=== PATIENT | female | born 1975 | race Caucasian/White ===

== ENCOUNTER 2017-01-20 09:35 | Inpatient (IN) | payer OTHER ==
[2017-01-20] MEDS ORDERED: PHENERGAN INJ 25 MG ONE ×2 (09:41→11:34)
[2017-01-20] MEDS ORDERED: NS 1000 ML 1,000 ML ONE (09:41)
[2017-01-20] MEDS ORDERED: DILAUDID INJ ONE (09:42)
[2017-01-20 09:52] VITALS: BMI 27.4
[2017-01-20] MEDS ORDERED: NS 1000 ML 1,000 ML IV ONE (09:56)
[2017-01-20] MEDS ORDERED: DILAUDID IVP ONE (09:56)
[2017-01-20] MEDS ORDERED: PHENERGAN INJ 25 MG IV ONE ×2 (09:56→11:33)
[2017-01-20] MEDS ORDERED: DILAUDID INJ IVP PRN ×2 (09:57→14:02)
--- NOTE | 2017-01-20 10:01 | ED.ABDFE ---
HPI - Time seen Time seen: 09:55 - PCP Primary Care Physician: AYANNA - HPI Comment HPI Comment: PATIENT HAVE HISTORY OF 6MM STONE IN RENAL PELVIS. WAS ASYMTOMATIC UNTILL LAST NIGHT. HAVE LOW GRADE FEVER. PAIN WORSE THIS AM. - Complaint Chief Complaint Doctors Comments: RIGHT FLANK PAIN SINCE LAST NIGHT. Chief Complaint:: PT. C/O RIGHT FLANK PAIN. PT. STATES SHE HAS BEEN ASYMPTOMATIC UNTIL LAST NIGHT. SHE SEEN DR. BULLOCK ON THURSDAY AND IS SCHEDULED FOR LITHOTRIPSY ON 02/03/17. PT. HAS A 6MM KIDNEY STONE. - Nurses notes reviewed Nurses Notes Review: Yes - Source History Provided: Patient, Family Member - Mode of arrival Mode of Arrival: Ambulatory - Timing Onset of Chief Complaint: 01/19/17 Came on: Suddenly - Duration Duration: Constant Duration: Hours - Location Location: RLQ (RIGHT FLANKK AND RT LOWER ABDOMEN) - Severity Severity: Moderate - Quality Quality: Sharp - Context Onset: Suddenly, At Rest PMH - PMH Past Medical History: Yes Past Medical History: Migraines Past Surgical History: Yes Surgical History: , Hysterectomy - Family History History of Family Medical Conditions: Yes Family Medical History: Cancer - Social History Does patient currently use any type of tobacco product: No Have you used tobacco products in the last 12 months: No Type of Tobacco Use: None Does any household member use tobacco: No Alcohol Use: None Do you use any recreational Drugs:: No Lives With: Spouse Lives Where: Home - infectious screening In the last 2 months have you had wt loss of >10#?: NO Have you had fever, night sweats or hemotysis?: No Have you traveled outside the country in the last 6 months?: No Isolation: Standard ROS - Review of Systems Constitutional: No Symptoms Reported Eyes: No Symptoms Reported ENTM: No Symptoms Reported Respiratoy: No Symptoms Reported Cardiovascular: No Symptoms Reported Gastrointestinal/Abdominal: Abdominal Pain, Nausea, Vomiting Genitourinary: Other (RIGHT FLANK) Neurological: No Symptoms Reported Musculoskeletal: No Symptoms Reported Integumentary: Dryness Hematologic/Lymphatic: No Symptoms Reported Endocrine: No Symptoms Reported All Other Systems: Reviewed and Negative PE - Vital Signs Vitals: Temperature 98.4 F Pulse Rate 123 Respiratory Rate 22 Blood Pressure [Right Arm] 109/68 Blood Pressure 101/69 O2 Sat by Pulse Oximetry 98 - General Limitations: No Limitations General Appearance: Alert - Head Head Exam: Normal Inspection - Eyes Eye exam: Normal Appearance - ENT ENT Exam: Normal External Ear Exam - Neck Neck Exam: Normal Inspection - Chest Chest Inspection: Symmetric Chest Wall Rise - Respiratory Respiratory Exam: Normal Lung Sounds Bilat Respiratory Exam: Bilateral Clear to Auscultation - Cardiovascular Cardiovascular Exam: Regular Rate, Normal Rhythm, Normal Heart Sounds - Abdominal Exam Abdominal Exam: Normal Bowel Sounds, Soft Abdominal Tenderness: RLQ, Suprapubic, Moderate - Rectal Rectal Exam: Deferred - Back Back Exam: (R) CVA Tenderness - Extremeties Extremities Exam: Normal Inspection - External Exam: Female: Normal External Exam : Speculum Exam (Female): Normal Speculum Exam : Bimanual Exam (female): Normal Bimanual exam - Neurologic Neurological Exam: Alert, Oriented X3 - Psychiatric Psychiatric Exam: Anxious - Skin Skin Exam: Dry MDM - Additional Information Obtained From Additional information provided by: Family - Differential Diagnosis Differential Diagnosis- Considerations may include:: Bowel Obstruction, Gastritus/PUD, Urinary obstruction, Urinary tract infection, Urolithiasis Course - Treatment Treatment: SEE REPORT. PATIENT DISCHARGE HOME BUT PAIN INCREASE AND SHE SPIKE TEMP. SHE RETURN TO ED AND WAS DIRECT ADMITTED TO HOSPITAL FOR IN HOUSE MANAGEMENT. - Consultation Consultation Comments: DISCUSS PATIENT WITH DR. URENA. HE WILL ADMIT PATIENT. - Education/Counseling Education/Counseling: Patient, Family, Education Educated On: Treatment, Diagnosis, Needs for Follow Up ROR - Labs Reviewed Laboratory Results Reviewed?: Yes Result Diagrams: 01/21/17 05:10 01/21/17 05:10 Laboratory: WBC 15.5 X10^3/uL (3.6-10.0) H 01/21/17 05:10 RBC 3.53 X10^6/uL (3.5-5.4) 01/21/17 05:10 Hgb 11.2 g/dL (12.0-16.0) L 01/21/17 05:10 Hct 33.4 % (36.0-47.0) L 01/21/17 05:10 MCV 94.6 fL (80.0-100.0) 01/21/17 05:10 MCH 31.9 pg (27.0-34.0) 01/21/17 05:10 MCHC 33.7 g/dL (33.0-35.0) 01/21/17 05:10 RDW 13.3 % (11.6-16.5) 01/21/17 05:10 Plt Count 182 X10^3/uL (150.0-450.0) 01/21/17 05:10 Plt Count Comment Adequate (ADEQUATE) 01/21/17 05:10 MPV 9.1 fL (7.4-11.0) 01/21/17 05:10 Neut % 93.9 % (42.0-75.0) H 01/21/17 05:10 Lymph % 3.9 % (21.0-51.0) L 01/21/17 05:10 [place] % 2.0 % (0.0-13.0) 01/21/17 05:10 Eos % 0.0 % (0.9-2.9) L 01/21/17 05:10 Baso % 0.2 % (0.2-1.0) 01/21/17 05:10 Neut # 14.6 x10^3/uL (2.2-4.8) H 01/21/17 05:10 Lymph # 0.6 X10^3/uL (1.3-2.9) L 01/21/17 05:10 Becker # 0.3 x10^3/uL (0.3-0.8) 01/21/17 05:10 Eos # 0.0 x10^3/uL (0.0-0.2) 01/21/17 05:10 Baso # 0.0 X10^3/uL (0.0-0.1) 01/21/17 05:10 Absolute Nucleated RBC 0.0 /100WBC 01/21/17 05:10 Total Counted 100 01/21/17 05:10 Neutrophils % (Manual) 84 % (39-76) H 01/21/17 05:10 Band Neutrophils % 7 % (0-10) 01/21/17 05:10 Lymphocytes % (Manual) 7 % (13-43) L 01/21/17 05:10 Monocytes % (Manual) 2 % (4-9) L 01/21/17 05:10 Plt Morphology Comment Normal (NORMAL) 01/21/17 05:10 RBC Morphology Normal (NORMAL) 01/21/17 05:10 Sodium 142 mmol/L (136-145) 01/21/17 05:10 Corrected Sodium 142 mmol/L (136-145) 01/21/17 05:10 Potassium 3.5 mmol/L (3.5-5.1) 01/21/17 05:10 Chloride 110 mmol/L (98-107) H 01/21/17 05:10 Carbon Dioxide 20.3 mmol/L (21-32) L 01/21/17 05:10 BUN 15 mg/dL (7-18) 01/21/17 05:10 Creatinine 1.30 mg/dL (0.55-1.02) H 01/21/17 05:10 Est GFR (MDRD) Af Amer 59 (>60) 01/21/17 05:10 Est GFR (MDRD) Non-Af 48 (>60) L 01/21/17 05:10 Glucose 115 mg/dL (65-99) H 01/21/17 05:10 Calcium 7.5 mg/dL (8.5-10.1) L 01/21/17 05:10 Corrected Calcium 8.6 mg/dL (8.5-10.1) 01/21/17 05:10 Total Bilirubin 0.40 mg/dL (0.2-1.0) 01/21/17 05:10 AST 57 Units/L (15-37) H 01/21/17 05:10 ALT 47 Units/L (12-78) 01/21/17 05:10 Alkaline Phosphatase 53 Units/L (46-116) 01/21/17 05:10 Total Protein 5.6 g/dL (6.4-8.2) L 01/21/17 05:10 Albumin 2.6 g/dL (3.4-5.0) L 01/21/17 05:10 Globulin 3.0 g/dL (2.5-4.5) 01/21/17 05:10 Albumin/Globulin Ratio 0.9 Ratio (1.1-2.1) L 01/21/17 05:10 Specimen Type Clean catch urine 01/20/17 19:33 Urine Color Yellow (YELLOW) 01/20/17 19:33 Urine Appearance Hazy (CLEAR) 01/20/17 19:33 Urine pH 5.0 (5.0 - 8.0) 01/20/17 19:33 Ur Specific [place] 1.010 (1.000-1.030) 01/20/17 19:33 Urine Protein 1+ (NEGATIVE) 01/20/17 19:33 Urine Glucose (UA) Negative (NEGATIVE) 01/20/17 19:33 Urine Ketones Negative (NEGATIVE) 01/20/17 19:33 Urine Occult Blood 4+ (NEGATIVE) 01/20/17 19:33 Urine Nitrite Negative (NEGATIVE) 01/20/17 19:33 Urine Bilirubin Negative (NEGATIVE) 01/20/17 19:33 Urine Urobilinogen Normal (NORMAL) 01/20/17 19:33 Ur Leukocyte Esterase 3+ (NEGATIVE) 01/20/17 19:33 Urine RBC 0-5 /HPF (NEGATIVE) 01/20/17 19:33 Urine WBC 11-25 /HPF (NEGATIVE) 01/20/17 19:33 Ur Squamous Epith Cells Rare /HPF (NEGATIVE) 01/20/17 19:33 Urine Bacteria 4+ /HPF (NEGATIVE) 01/20/17 19:33 Ur Culture Indicated? Yes/culture set up 01/20/17 19:33 - XRAY XRAY Interpreted by: Radiologist XRAY Findings: REPORT DISCUSS WITH PATIENT. - Diagnosis Discharge Problem: Kidney stone Abdominal pain Qualifiers: Abdominal location: right lower quadrant Qualified Code(s): R10.31 - Right lower quadrant pain Fever Qualifiers: Fever type: due to other condition Qualified Code(s): R50.81 - Fever presenting with conditions classified elsewhere - Discharge Plan Disposition: ADMITTED INPATIENT Condition: Good - Follow ups/Referrals - Instructions
[2017-01-20 10:33] LABS: BILIRUBIN,URINE NEGATIVE (NEGATIVE); BLOOD/HEMOGLOBIN,URINE 5+ (NEGATIVE); GLUCOSE, URINE NEGATIVE (NEGATIVE); KETONES,URINE NEGATIVE (NEGATIVE); LEUKOCYTE ESTERASE ,URINE NEGATIVE (NEGATIVE); NITRITES,URINE NEGATIVE (NEGATIVE); PROTEIN,URINE 2+ (NEGATIVE); UROBILINOGEN,URINE NORMAL (NORMAL)
[2017-01-20 10:33] LABS: ALANINE AMINOTRANSFERASE 35 Units/L (12-78); ALBUMIN 3.8 g/dL (3.4-5.0); ALKALINE PHOSPHATASE 69 Units/L (46-116); ASPARTATE AMINO TRANSFERASE 27 Units/L (15-37); BLOOD UREA NITROGEN 14 mg/dL (7-18); CALCIUM 8.3 mg/dL (8.5-10.1); CARBON DIOXIDE 25.8 mmol/L (21-32); CHLORIDE 106 mmol/L (98-107); CREATININE 1.23 mg/dL (0.55-1.02); GLUCOSE 95 mg/dL (65-99); SODIUM 142 mmol/L (136-145); TOTAL PROTEIN 7.1 g/dL (6.4-8.2); eGFR BLACK RACES > 60 (>60); eGFR NON BLACK RACES 52 (>60)
[2017-01-20 10:39] LABS: BASOPHILS % (AUTO) 0.4 % (0.2-1.0); EOSINOPHILS % (AUTO) 0.4 % (0.9-2.9); HEMATOCRIT 38.2 % (36.0-47.0); HEMOGLOBIN 12.9 g/dL (12.0-16.0); LYMPHOCYTES # (AUTO) 0.7 X10^3/uL (1.3-2.9); LYMPHOCYTES % (AUTO) 7.8 % (21.0-51.0); MEAN CORPUSCULAR HEMOGLOBIN 31.8 pg (27.0-34.0); MEAN CORPUSCULAR HGB CONC 33.9 g/dL (33.0-35.0); MEAN CORPUSCULAR VOLUME 93.9 fL (80.0-100.0); MEAN PLATELET VOLUME 8.5 fL (7.4-11.0); MONOCYTES # (AUTO) 0.1 x10^3/uL (0.3-0.8); MONOCYTES % (AUTO) 0.9 % (0.0-13.0); NEUTROPHILS # (AUTO) 8.6 x10^3/uL (2.2-4.8); NEUTROPHILS % (AUTO) 90.5 % (42.0-75.0); PLATELET COUNT 227 X10^3/uL (150.0-450.0); RED BLOOD COUNT 4.07 X10^6/uL (3.5-5.4); RED CELL DISTRIBUTION WIDTH 13.3 % (11.6-16.5); WHITE BLOOD COUNT 9.5 X10^3/uL (3.6-10.0)
--- NOTE | 2017-01-20 10:41 | CT ---
CT abdomen and pelvis without contrast Indication: Right flank pain Comparison: 12/01/2016 Technique: Multiple axial images of the abdomen and pelvis were obtained from the lung bases to the pubic symph ysis without the administration of IV contrast. Coronal and sagittal images were also provided. Radiation dose reduction techniques were performed utilizing adjustment for MA/kVP based on patient body size. Findings: The visualized portions of the lung bases are unremarkable. The bony structures are grossly intact. Given the limitations of lack of IV contrast administration the liver, gallbladder, spleen, pancreas , and adrenal glands are unremarkable in their CT appearance. Stone previously located within the right kidney has migrated to the right UVJ measuring 5 mm on tod ay's examination causing mild right hydroureteronephrosis. Left kidney is without evidence of masses , hydronephrosis or mass. No bowel wall thickening or bowel dilatation is present. The colon and rectum are unremarkable. Th e urinary bladder is grossly unremarkable. The appendix is normal. No pelvic or adnexal mass. There is a suspected cyst within the right adnexa measuring approximately 3 cm on axial image 63. No mesenteric lymphadenopathy or stranding can be observed. No free fluid or free air is seen withi n the abdomen. IMPRESSION: 1. Migration of right renal stone to the UVJ measuring approximate 5 mm causing mild right hydroure teronephrosis. 2. Enlargement of the right adnexa suspected to represent an approximate 3 cm right adnexal cyst. 3. The appendix is normal. Reported By:
[2017-01-20 10:44] LABS: APPEARANCE,URINE HAZY (CLEAR); BACTERIA,URINE TRACE /HPF (NEGATIVE); COLOR,URINE YELLOW (YELLOW); SQUAMOUS EPITHELIAL CELL,UR MANY /HPF (NEGATIVE)
[2017-01-20 11:00] LABS: BAND NEUTROPHILS % 2 % (0-10); PLATELET MORPHOLOGY COMMENT NORMAL (NORMAL)
[2017-01-20] MEDS: NS 1000 ML 1,000 ML IV SCH ×2 (15:15→22:54)
[2017-01-20] MEDS: TORADOL 30 MG VIAL IVP PRN ×2 (15:16→21:08)
[2017-01-20] MEDS: ZOFRAN INJ 4 MG VIAL IVP PRN (15:16)
[2017-01-20 20:02] LABS: BILIRUBIN,URINE NEGATIVE (NEGATIVE); BLOOD/HEMOGLOBIN,URINE 4+ (NEGATIVE); GLUCOSE, URINE NEGATIVE (NEGATIVE); KETONES,URINE NEGATIVE (NEGATIVE); LEUKOCYTE ESTERASE ,URINE 3+ (NEGATIVE); NITRITES,URINE NEGATIVE (NEGATIVE); PROTEIN,URINE 1+ (NEGATIVE); UROBILINOGEN,URINE NORMAL (NORMAL)
[2017-01-20 20:07] LABS: APPEARANCE,URINE HAZY (CLEAR); BACTERIA,URINE 4+ /HPF (NEGATIVE); COLOR,URINE YELLOW (YELLOW); RBC,URINE 0-5 /HPF (NEGATIVE); SQUAMOUS EPITHELIAL CELL,UR RARE /HPF (NEGATIVE)
[2017-01-20] MEDS ORDERED: NEURONTIN CAP 300 MG PO ONE (21:43)
[2017-01-20] MEDS: NEURONTIN TAB 600 MG PO SCH (21:49)
[2017-01-20] MEDS ORDERED: NEURONTIN CAP 300 MG PO SCH (22:00)
[2017-01-21] MEDS: TYLENOL 325 MG TAB PO PRN ×3 (00:38→18:38)
[2017-01-21] MEDS: NS 1000 ML 1,000 ML IV SCH ×3 (05:40→21:36)
[2017-01-21 06:18] LABS: BASOPHILS % (AUTO) 0.2 % (0.2-1.0); HEMATOCRIT 33.4 % (36.0-47.0); HEMOGLOBIN 11.2 g/dL (12.0-16.0); LYMPHOCYTES # (AUTO) 0.6 X10^3/uL (1.3-2.9); LYMPHOCYTES % (AUTO) 3.9 % (21.0-51.0); MEAN CORPUSCULAR HEMOGLOBIN 31.9 pg (27.0-34.0); MEAN CORPUSCULAR HGB CONC 33.7 g/dL (33.0-35.0); MEAN CORPUSCULAR VOLUME 94.6 fL (80.0-100.0); MEAN PLATELET VOLUME 9.1 fL (7.4-11.0); MONOCYTES # (AUTO) 0.3 x10^3/uL (0.3-0.8); NEUTROPHILS # (AUTO) 14.6 x10^3/uL (2.2-4.8); NEUTROPHILS % (AUTO) 93.9 % (42.0-75.0); PLATELET COUNT 182 X10^3/uL (150.0-450.0); RED BLOOD COUNT 3.53 X10^6/uL (3.5-5.4); RED CELL DISTRIBUTION WIDTH 13.3 % (11.6-16.5); WHITE BLOOD COUNT 15.5 X10^3/uL (3.6-10.0)
[2017-01-21 06:25] LABS: ALBUMIN 2.6 g/dL (3.4-5.0); CALCIUM 7.5 mg/dL (8.5-10.1); CARBON DIOXIDE 20.3 mmol/L (21-32); COR CA(FOR HYPOALB) 8.6 mg/dL (8.5-10.1); CREATININE 1.3 mg/dL (0.55-1.02); TOTAL PROTEIN 5.6 g/dL (6.4-8.2)
[2017-01-21] MEDS: TORADOL 30 MG VIAL IVP PRN ×3 (06:25→18:33)
[2017-01-21 06:45] LABS: BAND NEUTROPHILS % 7 % (0-10); PLATELET MORPHOLOGY COMMENT NORMAL (NORMAL)
--- NOTE | 2017-01-21 09:37 | DR.H&P ---
H&P - History & Physical for Day of: H&P Date: 01/20/17 - Chief Complaint Chief Complaint: RIGHT FLANK PAIN - Allergies Allergies/Adverse Reactions: Allergies Allergy/AdvReac Type Severity Reaction Status Date / Time Codeine Allergy Verified 01/20/17 09:37 Morphine Allergy Verified 01/20/17 09:37 Sulfa Antibiotics Allergy Verified 01/20/17 09:37 - History of Present Illness History of Present Illness: THIS IS A 41 YEAR OLD FEMALE, WHO IS A PATIENT OF OURS. SHE PRESENTS TO THE EMERGENCY ROOM WITH COMPLAINTS OF RIGHT FLANK PAIN. PATIENT ALSO REPORTS FEVER OF 103F AT HOME. PATIENT STATES SHE HAS BEEN ASYMPTOMATIC UNTIL LAST NIGHT. PATIENT HAD SEEN DR. BULLOCK ON THURSDAY AND WAS SCHEDULED FOR LITHOTRIPSY ON 02/03/17 FOR A 6MM KIDNEY STONE. SHE RATES RIGHT FLANK PAIN A 10 ON A 1-TO-[address] LABS AND [address] WERE OBTAINED. CBC WNL. CMP WNL EXCEPT: CREAT 1.23, GFR 52, CALCIUM 8.3. CT OF ABD/PELVIS REPORTS MIGRATION OF RIGHT RENAL STONE TO THE UVJ MEASURING APPROXIMATE 5MM CAUSING MILD RIGHT HYROURETERONEPHROSIS; ENLARGEMENT OF THE RIGHT ADNEXA SUSPECTED TO REPRESENT AND APPORXIMATE 3CM RIGHT ADNEXAL CYST; APPENDIX IS NORMAL. URINALYSIS ABNORMALS: PROTEIN 2+, OCCULT BLOOD 5+, RBC 5-10, WBC 0-3, BACTERIA TRACE. PATIENT RECEIVED DILAUDID, PHENERGAN, AND AN IV FLUID BOLUS IN ER. WE WILL ADMIT PATIENT FOR FURTHER EVALUATION AND TREATMENT. WE WILL TREAT PATIENT FOR PYELONEPHRITIS WITH IV ANTIBIOTICS AND IV FLUIDS. WE WILL FOLLOW UP IN AM WITH LABS. - Past Medical History Past Medical History: Migraines, Kidney Stones - Past Surgical History Surgical History: , Hysterectomy - Family History Family Medical History: Cancer - Social History Does patient currently use any type of tobacco product: No Have you used tobacco products in the last 12 months: No Type of Tobacco Use: None Does any household member use tobacco: No Alcohol Use: None Drug Use: None - Medications Home Medications: Gabapentin [NEURONTIN CAP 300 mg *] 600 mg PO HS 01/20/17 [History Confirmed ] Hydrocodone-Acet 5 mg/325 mg [NORCO 5 MG/325 MG *] 1 tab PO Q4-6H PRN 01/20/17 [ History Confirmed 01/20/17] - Review of Systems Constitutional: Fever, Chills, Weakness, Malaise Eyes: No Symptoms Reported. denies: Pain, Vision Change, Conjunctivae Inflammation, Eyelid Inflammation, Redness ENT: No Symptoms Reported. denies: Ear Pain, Ear Discharge, Nose Pain, Nose Discharge, Nose Congestion, Mouth Pain, Mouth Swelling, Throat Pain, Throat Swelling Respiratory: No Symptoms Reported. denies: Cough, Shortness of Breath, Hemoptysis, SOB with Excertion, Pleuritic Pain, Sputum, Wheezing Cardiovascular: No Symptoms Reported. denies: Chest Pain, Palpitations, Orthopnea, Paroxysmal Noc. Dyspnea, Edema, Light Headedness Gastrointestinal: Nausea, Abdominal Pain. denies: Diarrhea, Constipation, Melena, Hematochezia Genitourinary: Dysuria, Frequency Musculoskeletal: Back Pain (Right) Skin: No Symptoms Reported. denies: Rash, Lesions, Jaundice, Bruising, Wound, Ecchymosis Neurological: No Symptoms Reported. denies: Weakness, Numbness, Incoordination , Change in Speech, Confusion, Seizures - Physical Exam Vital Signs: Temperature 99.3 F Pulse Rate [Left Brachial] 101 Respiratory Rate 20 Blood Pressure [Left Arm] 91/53 O2 Sat by Pulse Oximetry 90 Oriented: Normal, Time, Person, Place Eyes: Normal. negative: Blurred Vision, Diplopia, Discharge, Pain, Redness, Photophobia Ear: Normal. negative: Swelling, Ecchymosis, Hemotypanum, Abrasion, Laceration Nose: Normal. negative: Injected, Discharge, Blood Throat: Dry. negative: Tonsillar Hypertrophy, Exudate Respiratory: Clear Throughout Cardiovascular: Normal. negative: Murmur, Edema : Normal. negative: Dysuria, Hematuria, Frequency, Discharge, Bleeding, Auscultation: Bowel Sounds: Decreased. negative: Bruit Palpation: Normal. negative: Spleen Enlarged, Liver Enlarged, Mass Pulsatile Tenderness: RLQ, Suprapubic, Severe. negative: Rebound, Guarding, Rigidity Skin: Decreased Turgur. negative: Diaphoresis, Wound, Bruising, Ecchymosis Musculoskeletal: Back:Lumbar, Tender Psychiatric: Normal Mood Description: Anxious Affect: Anxious Speech Pattern: Clear, Appropriate - Assessment/Plan (1) Acute abdominal pain in right flank Status: Acute Plan: ADMIT PATIENT, START IV FLUIDS, IV ANTIBIOTICS, DILUADID, TORADOL, PHENERGAN, STRAIN URINE, MONITOR FOR FEVER. (2) Pyelonephritis Status: Suspected Plan: ABOVE. (3) Dehydration Status: Acute Plan: ABOVE. (4) Fever Qualifiers: Fever type: due to other condition Encounter type: E Qualified Code(s): R50.81 - Fever presenting with conditions classified elsewhere Status: Acute Plan: CONTINUE TO MONITOR, TYLENOL NEEDED. (5) Renal calculus, right Status: Acute Plan: START IV FLUIDS, STRAIN URINE. (6) Chronic migraine Status: Chronic Plan: CONTINUE NEURONTIN, MONITOR.
--- NOTE | 2017-01-21 10:03 | PCM.PROG ---
Progress Note - Progress Note for Day of Date: 01/21/17 - Subjective Subjective: PATIENT CONTINUES WITH SEVERE RIGHT FLANK ABDOMINAL PAIN. SHE IS UNABLE TO LIE STILL DUE TO PAIN THIS MORNING. SHE REPORTS SHE PASSED SMALL STONE-LIKE MATERIAL THAT WAS SENT TO LAB FOR ANALYSIS. WE ARE WAITING ON RESULTS. PATIENT HAD A TEMPERATURE OF 103F THROUGH THE NIGHT AND WHITE COUNT THIS MORNING IS 15.5. WE ARE CONTINUING TREATMENT FOR PYELONEPHRITIS WITH IV ROCEPHIN AND IV FLUIDS. PATIENT IS EXTREMELY TENDER TO RIGHT LOWER ABDOMEN UPON PALPATION. CBC WNL EXCEPT: WBC 15.5, H/H 11.2/33.4. CMP WNL EXCEPT: CHL 110, CARBON DIOXIDE 20.3, CREAT 1.30, GFR 48, GLUCOSE 115, CALCIUM 7.5, AST 57, TOT PROTEIN 5.6, ALBUMIN 2.6. WE WILL CHANGE IV ANTIBIOTICS TO FORTAZ AND LEVAQUIN AND OBTAIN A CT OF ABD/PELVIS WITHOUT CONTRAST IN AM FOR FOLLOW UP. - Past Medical Family Social History Past Med/Fam/Surg Hx: No changes since H&P Allergies: Allergies Codeine Allergy (Verified 01/20/17 09:37) Morphine Allergy (Verified 01/20/17 09:37) Sulfa Antibiotics Allergy (Verified 01/20/17 09:37) - Review of Systems ROS: No change since H&P - Vital Signs and I&O's Vital Signs: Temperature 100.4 F Pulse Rate [Left Brachial] 106 Respiratory Rate 18 Blood Pressure [Left Arm] 90/53 O2 Sat by Pulse Oximetry 93 Intake and Output: Intake & Output 01/18/17 01/19/17 01/20/17 01/21/17 11:59 11:59 11:59 11:59 Intake Total 1650 Output Total 1150 Balance 500 - Physical Exam Oriented: Normal, Time, Person, Place Eyes: Normal. negative: Blurred Vision, Diplopia, Discharge, Pain, Redness, Photophobia Ear: Normal. negative: Swelling, Ecchymosis, Hemotypanum, Abrasion, Laceration Nose: Normal. negative: Injected, Discharge, Blood Throat: Dry. negative: Tonsillar Hypertrophy, Exudate Respiratory: Normal Cardiovascular: Normal. negative: Murmur, Edema : Normal. negative: Dysuria, Hematuria, Frequency, Discharge, Bleeding, Auscultation: Bowel Sounds: Decreased. negative: Bruit Palpation: Normal. negative: Spleen Enlarged, Liver Enlarged, Mass Pulsatile Tenderness: RLQ, Suprapubic, Severe. negative: Rebound, Guarding, Rigidity Skin: Decreased Turgur. negative: Diaphoresis, Wound, Bruising, Ecchymosis Musculoskeletal: Back:Lumbar, Tender Psychiatric: Normal Mood Description: Anxious Affect: Anxious Speech Pattern: Clear, Appropriate - Laboratory and Diagnostics Result Diagrams: 01/21/17 05:10 01/21/17 05:10 Labs: Laboratory WBC 15.5 X10^3/uL (3.6-10.0) H 01/21/17 05:10 RBC 3.53 X10^6/uL (3.5-5.4) 01/21/17 05:10 Hgb 11.2 g/dL (12.0-16.0) L 01/21/17 05:10 Hct 33.4 % (36.0-47.0) L 01/21/17 05:10 MCV 94.6 fL (80.0-100.0) 01/21/17 05:10 MCH 31.9 pg (27.0-34.0) 01/21/17 05:10 MCHC 33.7 g/dL (33.0-35.0) 01/21/17 05:10 RDW 13.3 % (11.6-16.5) 01/21/17 05:10 Plt Count 182 X10^3/uL (150.0-450.0) 01/21/17 05:10 Plt Count Comment Adequate (ADEQUATE) 01/21/17 05:10 MPV 9.1 fL (7.4-11.0) 01/21/17 05:10 Neut % 93.9 % (42.0-75.0) H 01/21/17 05:10 Lymph % 3.9 % (21.0-51.0) L 01/21/17 05:10 [place] % 2.0 % (0.0-13.0) 01/21/17 05:10 Eos % 0.0 % (0.9-2.9) L 01/21/17 05:10 Baso % 0.2 % (0.2-1.0) 01/21/17 05:10 Neut # 14.6 x10^3/uL (2.2-4.8) H 01/21/17 05:10 Lymph # 0.6 X10^3/uL (1.3-2.9) L 01/21/17 05:10 [place] # 0.3 x10^3/uL (0.3-0.8) 01/21/17 05:10 Eos # 0.0 x10^3/uL (0.0-0.2) 01/21/17 05:10 Baso # 0.0 X10^3/uL (0.0-0.1) 01/21/17 05:10 Absolute Nucleated RBC 0.0 /100WBC 01/21/17 05:10 Total Counted 100 01/21/17 05:10 Neutrophils % (Manual) 84 % (39-76) H 01/21/17 05:10 Band Neutrophils % 7 % (0-10) 01/21/17 05:10 Lymphocytes % (Manual) 7 % (13-43) L 01/21/17 05:10 Monocytes % (Manual) 2 % (4-9) L 01/21/17 05:10 Plt Morphology Comment Normal (NORMAL) 01/21/17 05:10 RBC Morphology Normal (NORMAL) 01/21/17 05:10 Sodium 142 mmol/L (136-145) 01/21/17 05:10 Corrected Sodium 142 mmol/L (136-145) 01/21/17 05:10 Potassium 3.5 mmol/L (3.5-5.1) 01/21/17 05:10 Chloride 110 mmol/L (98-107) H 01/21/17 05:10 Carbon Dioxide 20.3 mmol/L (21-32) L 01/21/17 05:10 BUN 15 mg/dL (7-18) 01/21/17 05:10 Creatinine 1.30 mg/dL (0.55-1.02) H 01/21/17 05:10 Est GFR (MDRD) Af Amer 59 (>60) 01/21/17 05:10 Est GFR (MDRD) Non-Af 48 (>60) L 01/21/17 05:10 Glucose 115 mg/dL (65-99) H 01/21/17 05:10 Calcium 7.5 mg/dL (8.5-10.1) L 01/21/17 05:10 Corrected Calcium 8.6 mg/dL (8.5-10.1) 01/21/17 05:10 Total Bilirubin 0.40 mg/dL (0.2-1.0) 01/21/17 05:10 AST 57 Units/L (15-37) H 01/21/17 05:10 ALT 47 Units/L (12-78) 01/21/17 05:10 Alkaline Phosphatase 53 Units/L (46-116) 01/21/17 05:10 Total Protein 5.6 g/dL (6.4-8.2) L 01/21/17 05:10 Albumin 2.6 g/dL (3.4-5.0) L 01/21/17 05:10 Globulin 3.0 g/dL (2.5-4.5) 01/21/17 05:10 Albumin/Globulin Ratio 0.9 Ratio (1.1-2.1) L 01/21/17 05:10 Specimen Type Clean catch urine 01/20/17 19:33 Urine Color Yellow (YELLOW) 01/20/17 19:33 Urine Appearance Hazy (CLEAR) 01/20/17 19:33 Urine pH 5.0 (5.0 - 8.0) 01/20/17 19:33 Ur Specific [place] 1.010 (1.000-1.030) 01/20/17 19:33 Urine Protein 1+ (NEGATIVE) 01/20/17 19:33 Urine Glucose (UA) Negative (NEGATIVE) 01/20/17 19:33 Urine Ketones Negative (NEGATIVE) 01/20/17 19:33 Urine Occult Blood 4+ (NEGATIVE) 01/20/17 19:33 Urine Nitrite Negative (NEGATIVE) 01/20/17 19:33 Urine Bilirubin Negative (NEGATIVE) 01/20/17 19:33 Urine Urobilinogen Normal (NORMAL) 01/20/17 19:33 Ur Leukocyte Esterase 3+ (NEGATIVE) 01/20/17 19:33 Urine RBC 0-5 /HPF (NEGATIVE) 01/20/17 19:33 Urine WBC 11-25 /HPF (NEGATIVE) 01/20/17 19:33 Ur Squamous Epith Cells Rare /HPF (NEGATIVE) 01/20/17 19:33 Urine Bacteria 4+ /HPF (NEGATIVE) 01/20/17 19:33 Ur Culture Indicated? Yes/culture set up 01/20/17 19:33 - Plan (1) Acute abdominal pain in right flank Status: Acute Plan: START LEVAQUIN, FORTAZ, CONTINUE IV FLUIDS, DILUADID, TORADOL, PHENERGAN, STRAIN URINE, MONITOR FOR FEVER. (2) Pyelonephritis Status: Suspected Plan: START LEVAQUIN, FORTAZ, CONTINUE IV FLUIDS, DILUADID, TORADOL, PHENERGAN, STRAIN URINE, MONITOR FOR FEVER, LABS IN AM. (3) Dehydration Status: Chronic Plan: ABOVE. (4) Fever Status: Acute Qualifiers: Fever type: due to other condition Encounter type: E Qualified Code(s): R50.81 - Fever presenting with conditions classified elsewhere Plan: CONTINUE TO MONITOR, TYLENOL NEEDED. (5) Renal calculus, right Status: Acute Plan: START IV FLUIDS, STRAIN URINE. (6) Hypoalbuminemia Status: Acute Plan: CONTINUE TO MONITOR LABS. (7) Chronic migraine Status: Chronic Plan: CONTINUE NEURONTIN, MONITOR.
[2017-01-21] MEDS: LEVAQUIN PREMIX IV 750 MG 750 MG/150 ML BAG IV SCH (10:27)
[2017-01-21] MEDS: ZOFRAN INJ 4 MG VIAL IVP PRN (11:52)
[2017-01-21] MEDS: FORTAZ or TAZICEF INJ 2 GM in NS 50 ML IV + SPIKE MINIBAG* 50 ML IV SCH ×2 (14:05→21:42)
[2017-01-21] MEDS: PHENERGAN INJ 25 MG IV PRN ×2 (15:10→21:28)
[2017-01-21] MEDS: AMBIEN PO PRN (21:42)
[2017-01-21] MEDS: NEURONTIN TAB 600 MG PO SCH (21:42)
[2017-01-22] MEDS: TORADOL 30 MG VIAL IVP PRN ×4 (01:46→22:03)
[2017-01-22] MEDS: FORTAZ or TAZICEF INJ 2 GM in NS 50 ML IV + SPIKE MINIBAG* 50 ML IV SCH ×3 (05:17→22:04)
[2017-01-22] MEDS: NS 1000 ML 1,000 ML IV SCH ×3 (05:17→22:04)
[2017-01-22] MEDS: PHENERGAN INJ 25 MG IV PRN ×2 (07:47→13:09)
[2017-01-22 08:31] LABS: BASOPHILS % (AUTO) 0.4 % (0.2-1.0); EOSINOPHILS # (AUTO) 0.1 x10^3/uL (0.0-0.2); EOSINOPHILS % (AUTO) 1.1 % (0.9-2.9); HEMATOCRIT 31.8 % (36.0-47.0); HEMOGLOBIN 10.8 g/dL (12.0-16.0); LYMPHOCYTES # (AUTO) 0.5 X10^3/uL (1.3-2.9); LYMPHOCYTES % (AUTO) 4.9 % (21.0-51.0); MEAN CORPUSCULAR HEMOGLOBIN 31.8 pg (27.0-34.0); MEAN CORPUSCULAR HGB CONC 33.8 g/dL (33.0-35.0); MEAN CORPUSCULAR VOLUME 94.1 fL (80.0-100.0); MEAN PLATELET VOLUME 9.1 fL (7.4-11.0); MONOCYTES # (AUTO) 0.3 x10^3/uL (0.3-0.8); NEUTROPHILS # (AUTO) 8.8 x10^3/uL (2.2-4.8); NEUTROPHILS % (AUTO) 90.6 % (42.0-75.0); PLATELET COUNT 138 X10^3/uL (150.0-450.0); RED BLOOD COUNT 3.39 X10^6/uL (3.5-5.4); RED CELL DISTRIBUTION WIDTH 13.5 % (11.6-16.5); WHITE BLOOD COUNT 9.7 X10^3/uL (3.6-10.0)
[2017-01-22 08:42] LABS: ALANINE AMINOTRANSFERASE 76 Units/L (12-78); ALBUMIN 2.2 g/dL (3.4-5.0); ALKALINE PHOSPHATASE 79 Units/L (46-116); ASPARTATE AMINO TRANSFERASE 51 Units/L (15-37); BLOOD UREA NITROGEN 13 mg/dL (7-18); CALCIUM 7.3 mg/dL (8.5-10.1); CHLORIDE 112 mmol/L (98-107); COR CA(FOR HYPOALB) 8.7 mg/dL (8.5-10.1); GLUCOSE 110 mg/dL (65-99); SODIUM 143 mmol/L (136-145); TOTAL PROTEIN 5.5 g/dL (6.4-8.2); eGFR BLACK RACES > 60 (>60); eGFR NON BLACK RACES 53 (>60)
[2017-01-22] MEDS: LEVAQUIN PREMIX IV 750 MG 750 MG/150 ML BAG IV SCH (08:56)
[2017-01-22 09:12] LABS: BAND NEUTROPHILS % 2 % (0-10)
[2017-01-22 10:36] LABS: PLATELET MORPHOLOGY COMMENT NORMAL (NORMAL)
--- NOTE | 2017-01-22 13:18 | CT ---
CT abdomen and pelvis without contrast Indication: Abdominal pain, fever, history of renal stones Comparison: 01/20/2017 Technique: CT images of the abdomen and pelvis were obtained without contrast. Automatic exposure co ntrol was utilized. Findings: Small right pleural effusion with concomitant basilar atelectasis has developed. There is minimal basilar left lower lobe atelectasis. No acute skeletal abnormality is seen. Within noncontra st limitations, the liver, gallbladder, spleen, stomach, duodenum, pancreas, and adrenals appear nor mal. There has been passage of the previously described right UVJ stone, which is not identified within t he ureter or urinary bladder. Right-sided hydronephrosis has resolved. There is mild residual perine phric and periureteral fat stranding. No nephrolithiasis is identified. No bowel thickening or dilatation of the lower GI tract identified. Mild right adnexal prominence is similar to prior. No significant free fluid or adenopathy identified. Impression: 1. Interval passage of the right ureteral stone, with resolved hydronephrosis. 2. Small right pleural effusion Reported By:
--- NOTE | 2017-01-22 13:48 | PCM.PROG ---
Progress Note - Progress Note for Day of Date: 01/22/17 - Subjective Subjective: PATIENT CONTINUES WITH SEVERE RIGHT FLANK ABDOMINAL PAIN THIS MORNING. SHE REPORTS PAIN IS SLIGHTLY IMPROVED WITH IV TORADOL. PATIENT HAS A TEMPERATURE OF 100.3F THIS MORNING. FINAL URINE CULTURE REPORTS ENTEROBACTER AEROGENES, WHICH IS SENSITIVE TO LEVAQUIN. TWO PRELIMINARY BLOOD CULTURES REPORT GRAM NEGATIVE RODS. PATIENT CONTINUES WITH SEVERE TENDERNESS TO RIGHT LOWER ABDOMEN UPON PALPATION. WHITE COUNT IS NORMAL THIS MORNING. CBC WNL EXCEPT: H/H 10.8/31.8, PLT COUNT 138. CMP WNL EXCEPT: CHL 112, CREAT 1.20, GFR 53, GLUCOSE 110, CALCIUM 7.3, AST 51, TOT PROTEIN 5.5, ALBUMIN 2.2. WE WILL CONTINUE FORTAZ AND LEVAQUIN, IV FLUIDS, AND CONTINUE TO MONITOR. WE WILL FOLLOW UP IN AM WITH LABS. - Past Medical Family Social History Past Med/Fam/Surg Hx: No changes since H&P Allergies: Allergies Codeine Allergy (Verified 01/20/17 09:37) Morphine Allergy (Verified 01/20/17 09:37) Sulfa Antibiotics Allergy (Verified 01/20/17 09:37) - Review of Systems ROS: No change since H&P - Vital Signs and I&O's Vital Signs: Temperature 98.4 F Pulse Rate [Left Brachial] 85 Respiratory Rate 18 Blood Pressure [Left Arm] 97/55 O2 Sat by Pulse Oximetry 94 Intake and Output: Intake & Output 01/20/17 01/21/17 01/22/17 01/23/17 11:59 11:59 11:59 11:59 Intake Total 1650 4710 Output Total 1150 2300 Balance 500 2410 - Physical Exam Oriented: Normal, Time, Person, Place Eyes: Normal. negative: Blurred Vision, Diplopia, Discharge, Pain, Redness, Photophobia Ear: Normal. negative: Swelling, Ecchymosis, Hemotypanum, Abrasion, Laceration Nose: Normal. negative: Injected, Discharge, Blood Throat: Dry. negative: Tonsillar Hypertrophy, Exudate Respiratory: Normal Cardiovascular: Normal. negative: Murmur, Edema : Normal. negative: Dysuria, Hematuria, Frequency, Discharge, Bleeding, Auscultation: Bowel Sounds: Decreased. negative: Bruit Palpation: Normal. negative: Spleen Enlarged, Liver Enlarged Tenderness: RLQ, Suprapubic, Severe. negative: Rebound, Guarding, Rigidity Skin: Decreased Turgur. negative: Diaphoresis, Wound, Bruising, Ecchymosis Musculoskeletal: Back:Lumbar, Tender Psychiatric: Normal Mood Description: Calm Affect: Normal Speech Pattern: Clear, Appropriate - Laboratory and Diagnostics Result Diagrams: 01/22/17 07:51 01/22/17 07:51 Labs: 01/20/17 16:05 Blood Blood Culture - Preliminary 01/20/17 16:00 Blood Blood Culture - Preliminary 01/20/17 19:33 Urine,Clean Catch Urine Culture - Final Enterobacter Aerogenes Laboratory WBC 9.7 X10^3/uL (3.6-10.0) 01/22/17 07:51 RBC 3.39 X10^6/uL (3.5-5.4) L 01/22/17 07:51 Hgb 10.8 g/dL (12.0-16.0) L 01/22/17 07:51 Hct 31.8 % (36.0-47.0) L 01/22/17 07:51 MCV 94.1 fL (80.0-100.0) 01/22/17 07:51 MCH 31.8 pg (27.0-34.0) 01/22/17 07:51 MCHC 33.8 g/dL (33.0-35.0) 01/22/17 07:51 RDW 13.5 % (11.6-16.5) 01/22/17 07:51 Plt Count 138 X10^3/uL (150.0-450.0) L 01/22/17 07:51 Plt Count Comment Adequate (ADEQUATE) 01/22/17 07:51 MPV 9.1 fL (7.4-11.0) 01/22/17 07:51 Neut % 90.6 % (42.0-75.0) H 01/22/17 07:51 Lymph % 4.9 % (21.0-51.0) L 01/22/17 07:51 [place] % 3.0 % (0.0-13.0) 01/22/17 07:51 Eos % 1.1 % (0.9-2.9) 01/22/17 07:51 Baso % 0.4 % (0.2-1.0) 01/22/17 07:51 Neut # 8.8 x10^3/uL (2.2-4.8) H 01/22/17 07:51 Lymph # 0.5 X10^3/uL (1.3-2.9) L 01/22/17 07:51 [place] # 0.3 x10^3/uL (0.3-0.8) 01/22/17 07:51 Eos # 0.1 x10^3/uL (0.0-0.2) 01/22/17 07:51 Baso # 0.0 X10^3/uL (0.0-0.1) 01/22/17 07:51 Absolute Nucleated RBC 0.0 /100WBC 01/22/17 07:51 Total Counted 100 01/22/17 07:51 Neutrophils % (Manual) 84 % (39-76) H 01/22/17 07:51 Band Neutrophils % 2 % (0-10) 01/22/17 07:51 Lymphocytes % (Manual) 8 % (13-43) L 01/22/17 07:51 Monocytes % (Manual) 4 % (4-9) 01/22/17 07:51 Eosinophils % (Manual) 2 % (0-6) 01/22/17 07:51 Plt Morphology Comment Normal (NORMAL) 01/22/17 07:51 RBC Morphology Normal (NORMAL) 01/22/17 07:51 Dimorphic RBCs N 01/22/17 07:51 Sodium 143 mmol/L (136-145) 01/22/17 07:51 Corrected Sodium TNP 01/22/17 07:51 Potassium 3.7 mmol/L (3.5-5.1) 01/22/17 07:51 Chloride 112 mmol/L (98-107) H 01/22/17 07:51 Carbon Dioxide 21.0 mmol/L (21-32) 01/22/17 07:51 BUN 13 mg/dL (7-18) 01/22/17 07:51 Creatinine 1.20 mg/dL (0.55-1.02) H 01/22/17 07:51 Est GFR (MDRD) Af Amer > 60 (>60) 01/22/17 07:51 Est GFR (MDRD) Non-Af 53 (>60) L 01/22/17 07:51 Glucose 110 mg/dL (65-99) H 01/22/17 07:51 Calcium 7.3 mg/dL (8.5-10.1) L 01/22/17 07:51 Corrected Calcium 8.7 mg/dL (8.5-10.1) 01/22/17 07:51 Total Bilirubin 0.60 mg/dL (0.2-1.0) 01/22/17 07:51 AST 51 Units/L (15-37) H 01/22/17 07:51 ALT 76 Units/L (12-78) 01/22/17 07:51 Alkaline Phosphatase 79 Units/L (46-116) 01/22/17 07:51 Total Protein 5.5 g/dL (6.4-8.2) L 01/22/17 07:51 Albumin 2.2 g/dL (3.4-5.0) L 01/22/17 07:51 Globulin 3.3 g/dL (2.5-4.5) 01/22/17 07:51 Albumin/Globulin Ratio 0.7 Ratio (1.1-2.1) L 01/22/17 07:51 Specimen Type Clean catch urine 01/20/17 19:33 Urine Color Yellow (YELLOW) 01/20/17 19:33 Urine Appearance Hazy (CLEAR) 01/20/17 19:33 Urine pH 5.0 (5.0 - 8.0) 01/20/17 19:33 Ur Specific [place] 1.010 (1.000-1.030) 01/20/17 19:33 Urine Protein 1+ (NEGATIVE) 01/20/17 19:33 Urine Glucose (UA) Negative (NEGATIVE) 01/20/17 19:33 Urine Ketones Negative (NEGATIVE) 01/20/17 19:33 Urine Occult Blood 4+ (NEGATIVE) 01/20/17 19:33 Urine Nitrite Negative (NEGATIVE) 01/20/17 19:33 Urine Bilirubin Negative (NEGATIVE) 01/20/17 19:33 Urine Urobilinogen Normal (NORMAL) 01/20/17 19:33 Ur Leukocyte Esterase 3+ (NEGATIVE) 01/20/17 19:33 Urine RBC 0-5 /HPF (NEGATIVE) 01/20/17 19:33 Urine WBC 11-25 /HPF (NEGATIVE) 01/20/17 19:33 Ur Squamous Epith Cells Rare /HPF (NEGATIVE) 01/20/17 19:33 Urine Bacteria 4+ /HPF (NEGATIVE) 01/20/17 19:33 Ur Culture Indicated? Yes/culture set up 01/20/17 19:33 - Plan (1) Sepsis Status: Acute Qualifiers: Sepsis type: sepsis due to unspecified organism Qualified Code(s): A41.9 - Sepsis, unspecified organism Plan: AWAIT FINAL BLOOD CULTURES, CONTINUE LEVAQUIN, FORTAZ, CONTINUE IV FLUIDS , MONITOR VITAL SIGNS, LABS IN AM. (2) Pyelonephritis Status: Acute Plan: CONTINUE LEVAQUIN, FORTAZ, CONTINUE IV FLUIDS, DILUADID, TORADOL, PHENERGAN, STRAIN URINE, MONITOR FOR FEVER, LABS IN AM. (3) Acute abdominal pain in right flank Status: Acute Plan: CONTINUE LEVAQUIN, FORTAZ, CONTINUE IV FLUIDS, DILUADID, TORADOL, PHENERGAN, STRAIN URINE, MONITOR FOR FEVER. (4) Dehydration Status: Acute Plan: ABOVE. (5) Fever Status: Acute Qualifiers: Fever type: due to other condition Encounter type: E Qualified Code(s): R50.81 - Fever presenting with conditions classified elsewhere Plan: CONTINUE TO MONITOR, TYLENOL NEEDED. (6) Renal calculus, right Status: Acute Plan: START IV FLUIDS, STRAIN URINE. (7) Hypoalbuminemia Status: Acute Plan: CONTINUE TO MONITOR LABS. (8) Chronic migraine Status: Chronic Plan: CONTINUE NEURONTIN, MONITOR.
[2017-01-22] MEDS: ALBUMIN HUMAN 25%- 100ML 100 ML IV SCH (14:05)
[2017-01-22] MEDS ORDERED: DECADRON INJ PRESERVATIVE-FREE ONE (16:59)
[2017-01-22] MEDS ORDERED: ZOFRAN INJ 4 MG VIAL ONE (16:59)
[2017-01-22] MEDS ORDERED: NS 50 ML IV 50 ML IV ONE (16:59)
[2017-01-22] MEDS ORDERED: ATIVAN INJ 2 MG VIAL ONE (17:02)
[2017-01-22] MEDS: ZOFRAN INJ 4 MG VIAL 16 MG, ATIVAN INJ 2 MG VIAL 1 MG, DECADRON INJ 10 MG in NS 50 ML I... IV PRN (17:11)
[2017-01-22] MEDS: FLONASE NASAL SPRAY ENOSTRIL SCH (17:24)
[2017-01-22] MEDS: NEURONTIN TAB 600 MG PO SCH (22:03)
[2017-01-22] MEDS: AMBIEN PO PRN (22:03)
[2017-01-23] MEDS ORDERED: DECADRON INJ PRESERVATIVE-FREE ONE ×3 (00:57→20:50)
[2017-01-23] MEDS ORDERED: ATIVAN INJ 2 MG VIAL ONE ×3 (00:58→20:51)
[2017-01-23] MEDS ORDERED: ZOFRAN INJ 4 MG VIAL ONE ×3 (00:58→20:50)
[2017-01-23] MEDS ORDERED: NS 50 ML IV 50 ML IV ONE ×3 (00:59→20:50)
[2017-01-23] MEDS: ZOFRAN INJ 4 MG VIAL 16 MG, ATIVAN INJ 2 MG VIAL 1 MG, DECADRON INJ 10 MG in NS 50 ML I... IV PRN ×3 (01:11→20:55)
[2017-01-23] MEDS: FORTAZ or TAZICEF INJ 2 GM in NS 50 ML IV + SPIKE MINIBAG* 50 ML IV SCH ×3 (05:16→21:22)
[2017-01-23] MEDS: NS 1000 ML 1,000 ML IV SCH ×2 (05:16→14:43)
[2017-01-23 05:43] LABS: ALANINE AMINOTRANSFERASE 69 Units/L (12-78); ALBUMIN 2.5 g/dL (3.4-5.0); ALKALINE PHOSPHATASE 94 Units/L (46-116); ASPARTATE AMINO TRANSFERASE 46 Units/L (15-37); BLOOD UREA NITROGEN 12 mg/dL (7-18); CALCIUM 7.6 mg/dL (8.5-10.1); CARBON DIOXIDE 20.9 mmol/L (21-32); CHLORIDE 113 mmol/L (98-107); COR CA(FOR HYPOALB) 8.8 mg/dL (8.5-10.1); COR NA(FOR HYPERGLY) 147 mmol/L (136-145); CREATININE 0.97 mg/dL (0.55-1.02); GLUCOSE 137 mg/dL (65-99); SODIUM 146 mmol/L (136-145); TOTAL PROTEIN 5.9 g/dL (6.4-8.2); eGFR BLACK RACES > 60 (>60); eGFR NON BLACK RACES > 60 (>60)
[2017-01-23 06:02] LABS: BASOPHILS % (AUTO) 0.1 % (0.2-1.0); EOSINOPHILS % (AUTO) 0.2 % (0.9-2.9); HEMATOCRIT 31.2 % (36.0-47.0); HEMOGLOBIN 10.5 g/dL (12.0-16.0); LYMPHOCYTES # (AUTO) 0.5 X10^3/uL (1.3-2.9); LYMPHOCYTES % (AUTO) 11.4 % (21.0-51.0); MEAN CORPUSCULAR HEMOGLOBIN 31.7 pg (27.0-34.0); MEAN CORPUSCULAR HGB CONC 33.7 g/dL (33.0-35.0); MEAN CORPUSCULAR VOLUME 94.2 fL (80.0-100.0); MEAN PLATELET VOLUME 10.1 fL (7.4-11.0); MONOCYTES # (AUTO) 0.2 x10^3/uL (0.3-0.8); MONOCYTES % (AUTO) 3.7 % (0.0-13.0); NEUTROPHILS % (AUTO) 84.6 % (42.0-75.0); PLATELET COUNT 132 X10^3/uL (150.0-450.0); RED BLOOD COUNT 3.31 X10^6/uL (3.5-5.4); RED CELL DISTRIBUTION WIDTH 13.8 % (11.6-16.5); WHITE BLOOD COUNT 4.8 X10^3/uL (3.6-10.0)
[2017-01-23] MEDS: ALBUMIN HUMAN 25%- 100ML 100 ML IV SCH (09:46)
[2017-01-23] MEDS: FLONASE NASAL SPRAY ENOSTRIL SCH (09:47)
[2017-01-23] MEDS: LEVAQUIN PREMIX IV 750 MG 750 MG/150 ML BAG IV SCH (09:47)
--- NOTE | 2017-01-23 12:38 | PCM.PROG ---
Progress Note - Progress Note for Day of Date: 01/23/17 - Subjective Subjective: PATIENT REPORTS FLANK AND ABDOMINAL PAIN ARE SLIGHTLY IMPROVED. PATIENT HAD INTRACTABLE VOMITING YESTERDAY WITH NO IMPROVEMENTS WITH IV PHENERGAN OR IV ZOFRAN. ZOFRAN COCKTAIL WAS ADMINISTERED AND PATIENT'S VOMITING IMPROVED. PATEINT CONTINUES WITH FEVER OF 102.4F YESTERDAY. FOUR OUT OF FOUR BLOOD CULTURES ARE POSITIVE FOR ENTEROBACTER AEROGENES. ORGANISM IS SENSITIVE TO FORTAZ AND LEVAQUIN. URINE CULTURE ALSO REPORTS ENTEROBACTER AEROGENES, WHICH IS ALSO SENSITIVE TO FORTAZ AND LEVAQUIN. PATIENT CONTINUES WITH MODERATE TENDERNESS TO RIGHT LOWER ABDOMEN UPON PALPATION. CBC WNL EXCEPT : H/H 10.5/31.2, PLT COUNT 132. CMP WNL EXCEPT: SODIUM 146, CHL 113, GLUCOSE 137, CALCIUM 7.6, AST 46, TOT PROTEIN 5.9, ALBUMIN 2.5. WE WILL OBTAIN A LACTIC ACID, CONTINUE FORTAZ AND LEVAQUIN, IV FLUIDS, AND CONTINUE TO MONITOR. WE WILL FOLLOW UP IN AM WITH LABS. - Past Medical Family Social History Past Med/Fam/Surg Hx: No changes since H&P Allergies: Allergies Codeine Allergy (Verified 01/20/17 09:37) Morphine Allergy (Verified 01/20/17 09:37) Sulfa Antibiotics Allergy (Verified 01/20/17 09:37) - Review of Systems ROS: No change since H&P - Physical Exam Oriented: Normal, Time, Person, Place Eyes: Normal. negative: Blurred Vision, Diplopia, Discharge, Pain, Redness, Photophobia Ear: Normal. negative: Swelling, Ecchymosis, Hemotypanum, Abrasion, Laceration Nose: Normal. negative: Injected, Discharge, Blood Throat: Dry. negative: Tonsillar Hypertrophy, Exudate Respiratory: Normal Cardiovascular: Normal. negative: Murmur, Edema : Normal. negative: Dysuria, Hematuria, Frequency, Discharge, Bleeding, Auscultation: Bowel Sounds: Decreased. negative: Bruit Palpation: Normal. negative: Spleen Enlarged, Liver Enlarged, Mass Pulsatile Tenderness: RLQ, Suprapubic, Moderate. negative: Rebound, Guarding, Rigidity Skin: Decreased Turgur. negative: Diaphoresis, Wound, Bruising, Ecchymosis Musculoskeletal: Back:Lumbar, Tender Psychiatric: Normal Mood Description: Calm Affect: Normal Speech Pattern: Clear, Appropriate - Laboratory and Diagnostics Result Diagrams: 01/23/17 03:05 01/23/17 03:05 Labs: 01/23/17 08:50 Stool - Final Laboratory WBC 4.8 X10^3/uL (3.6-10.0) 01/23/17 03:05 RBC 3.31 X10^6/uL (3.5-5.4) L 01/23/17 03:05 Hgb 10.5 g/dL (12.0-16.0) L 01/23/17 03:05 Hct 31.2 % (36.0-47.0) L 01/23/17 03:05 MCV 94.2 fL (80.0-100.0) 01/23/17 03:05 MCH 31.7 pg (27.0-34.0) 01/23/17 03:05 MCHC 33.7 g/dL (33.0-35.0) 01/23/17 03:05 RDW 13.8 % (11.6-16.5) 01/23/17 03:05 Plt Count 132 X10^3/uL (150.0-450.0) L 01/23/17 03:05 Plt Count Comment Adequate (ADEQUATE) 01/22/17 07:51 MPV 10.1 fL (7.4-11.0) 01/23/17 03:05 Neut % 84.6 % (42.0-75.0) H 01/23/17 03:05 Lymph % 11.4 % (21.0-51.0) L 01/23/17 03:05 [place] % 3.7 % (0.0-13.0) 01/23/17 03:05 Eos % 0.2 % (0.9-2.9) L 01/23/17 03:05 Baso % 0.1 % (0.2-1.0) L 01/23/17 03:05 Neut # 4.0 x10^3/uL (2.2-4.8) 01/23/17 03:05 Lymph # 0.5 X10^3/uL (1.3-2.9) L 01/23/17 03:05 [place] # 0.2 x10^3/uL (0.3-0.8) L 01/23/17 03:05 Eos # 0.0 x10^3/uL (0.0-0.2) 01/23/17 03:05 Baso # 0.0 X10^3/uL (0.0-0.1) 01/23/17 03:05 Absolute Nucleated RBC 0.0 /100WBC 01/23/17 03:05 Total Counted 100 01/22/17 07:51 Neutrophils % (Manual) 84 % (39-76) H 01/22/17 07:51 Band Neutrophils % 2 % (0-10) 01/22/17 07:51 Lymphocytes % (Manual) 8 % (13-43) L 01/22/17 07:51 Monocytes % (Manual) 4 % (4-9) 01/22/17 07:51 Eosinophils % (Manual) 2 % (0-6) 01/22/17 07:51 Plt Morphology Comment Normal (NORMAL) 01/22/17 07:51 RBC Morphology Normal (NORMAL) 01/22/17 07:51 Dimorphic RBCs N 01/22/17 07:51 Sodium 146 mmol/L (136-145) H 01/23/17 03:05 Corrected Sodium 147 mmol/L (136-145) H 01/23/17 03:05 Potassium 4.0 mmol/L (3.5-5.1) 01/23/17 03:05 Chloride 113 mmol/L (98-107) H 01/23/17 03:05 Carbon Dioxide 20.9 mmol/L (21-32) L 01/23/17 03:05 BUN 12 mg/dL (7-18) 01/23/17 03:05 Creatinine 0.97 mg/dL (0.55-1.02) 01/23/17 03:05 Est GFR (MDRD) Af Amer > 60 (>60) 01/23/17 03:05 Est GFR (MDRD) Non-Af > 60 (>60) 01/23/17 03:05 Glucose 137 mg/dL (65-99) H 01/23/17 03:05 Lactic Acid 2.0 mmol/L (0.4-2.0) 01/23/17 09:05 Calcium 7.6 mg/dL (8.5-10.1) L 01/23/17 03:05 Corrected Calcium 8.8 mg/dL (8.5-10.1) 01/23/17 03:05 Total Bilirubin 0.40 mg/dL (0.2-1.0) 01/23/17 03:05 AST 46 Units/L (15-37) H 01/23/17 03:05 ALT 69 Units/L (12-78) 01/23/17 03:05 Alkaline Phosphatase 94 Units/L (46-116) 01/23/17 03:05 Total Protein 5.9 g/dL (6.4-8.2) L 01/23/17 03:05 Albumin 2.5 g/dL (3.4-5.0) L 01/23/17 03:05 Globulin 3.4 g/dL (2.5-4.5) 01/23/17 03:05 Albumin/Globulin Ratio 0.7 Ratio (1.1-2.1) L 01/23/17 03:05 Specimen Type Clean catch urine 01/20/17 19:33 Urine Color Yellow (YELLOW) 01/20/17 19:33 Urine Appearance Hazy (CLEAR) 01/20/17 19:33 Urine pH 5.0 (5.0 - 8.0) 01/20/17 19:33 Ur Specific [place] 1.010 (1.000-1.030) 01/20/17 19:33 Urine Protein 1+ (NEGATIVE) 01/20/17 19:33 Urine Glucose (UA) Negative (NEGATIVE) 01/20/17 19:33 Urine Ketones Negative (NEGATIVE) 01/20/17 19:33 Urine Occult Blood 4+ (NEGATIVE) 01/20/17 19:33 Urine Nitrite Negative (NEGATIVE) 01/20/17 19:33 Urine Bilirubin Negative (NEGATIVE) 01/20/17 19:33 Urine Urobilinogen Normal (NORMAL) 01/20/17 19:33 Ur Leukocyte Esterase 3+ (NEGATIVE) 01/20/17 19:33 Urine RBC 0-5 /HPF (NEGATIVE) 01/20/17 19:33 Urine WBC 11-25 /HPF (NEGATIVE) 01/20/17 19:33 Ur Squamous Epith Cells Rare /HPF (NEGATIVE) 01/20/17 19:33 Urine Bacteria 4+ /HPF (NEGATIVE) 01/20/17 19:33 Ur Culture Indicated? Yes/culture set up 01/20/17 19:33 - Plan (1) Enterobacter sepsis Status: Acute Plan: CONTINUE LEVAQUIN, FORTAZ, CONTINUE IV FLUIDS, MONITOR VITAL SIGNS, LABS IN AM. (2) Pyelonephritis Status: Acute Plan: CONTINUE LEVAQUIN, FORTAZ, CONTINUE IV FLUIDS, DILUADID, TORADOL, PHENERGAN, STRAIN URINE, MONITOR FOR FEVER, LABS IN AM. (3) Acute abdominal pain in right flank Status: Acute Plan: CONTINUE LEVAQUIN, FORTAZ, CONTINUE IV FLUIDS, DILUADID, TORADOL, PHENERGAN, STRAIN URINE, MONITOR FOR FEVER. (4) Dehydration Status: Acute Plan: ABOVE. (5) Fever Status: Acute Qualifiers: Fever type: due to other condition Encounter type: E Qualified Code(s): R50.81 - Fever presenting with conditions classified elsewhere Plan: CONTINUE TO MONITOR, TYLENOL NEEDED. (6) Renal calculus, right Status: Acute Plan: START IV FLUIDS, STRAIN URINE. (7) Hypoalbuminemia Status: Acute Plan: CONTINUE TO MONITOR LABS. (8) Chronic migraine Status: Chronic Plan: CONTINUE NEURONTIN, MONITOR.
[2017-01-23 14:13] LABS: CRYPTOSPORIDIUM PARVUM ANTIGEN NEGATIVE (NEGATIVE); GIARDIA LAMBLIA ANTIGEN NEGATIVE (NEGATIVE)
[2017-01-23] MEDS ORDERED: NORCO 5/325 MG TAB PO PRN (15:03)
[2017-01-23] MEDS: VALIUM INJ IM PRN (16:10)
[2017-01-23] MEDS: NEURONTIN TAB 600 MG PO SCH (21:22)
[2017-01-23] MEDS: AMBIEN PO PRN (21:22)
[2017-01-24] MEDS: NS 1000 ML 1,000 ML IV SCH ×4 (00:16→21:03)
[2017-01-24] MEDS: VALIUM INJ IM PRN ×3 (00:17→19:08)
[2017-01-24] MEDS ORDERED: NS 50 ML IV 50 ML IV ONE ×3 (05:00→21:42)
[2017-01-24] MEDS ORDERED: DECADRON INJ PRESERVATIVE-FREE ONE ×3 (05:01→21:42)
[2017-01-24] MEDS ORDERED: ZOFRAN INJ 4 MG VIAL ONE ×3 (05:01→21:42)
[2017-01-24] MEDS ORDERED: ATIVAN INJ 2 MG VIAL ONE ×3 (05:01→21:42)
[2017-01-24] MEDS: ZOFRAN INJ 4 MG VIAL 16 MG, ATIVAN INJ 2 MG VIAL 1 MG, DECADRON INJ 10 MG in NS 50 ML I... IV PRN ×3 (05:17→23:21)
[2017-01-24] MEDS: FORTAZ or TAZICEF INJ 2 GM in NS 50 ML IV + SPIKE MINIBAG* 50 ML IV SCH ×3 (05:29→21:03)
[2017-01-24 06:32] LABS: BASOPHILS % (AUTO) 0.1 % (0.2-1.0); HEMATOCRIT 30.6 % (36.0-47.0); HEMOGLOBIN 10.3 g/dL (12.0-16.0); LYMPHOCYTES # (AUTO) 1.1 X10^3/uL (1.3-2.9); LYMPHOCYTES % (AUTO) 17.2 % (21.0-51.0); MEAN CORPUSCULAR HEMOGLOBIN 31.9 pg (27.0-34.0); MEAN CORPUSCULAR HGB CONC 33.6 g/dL (33.0-35.0); MEAN CORPUSCULAR VOLUME 94.9 fL (80.0-100.0); MEAN PLATELET VOLUME 10.8 fL (7.4-11.0); MONOCYTES # (AUTO) 0.3 x10^3/uL (0.3-0.8); MONOCYTES % (AUTO) 5.5 % (0.0-13.0); NEUTROPHILS # (AUTO) 4.8 x10^3/uL (2.2-4.8); NEUTROPHILS % (AUTO) 77.2 % (42.0-75.0); PLATELET COUNT 184 X10^3/uL (150.0-450.0); RED BLOOD COUNT 3.23 X10^6/uL (3.5-5.4); RED CELL DISTRIBUTION WIDTH 13.8 % (11.6-16.5); WHITE BLOOD COUNT 6.2 X10^3/uL (3.6-10.0)
[2017-01-24 06:35] LABS: ALANINE AMINOTRANSFERASE 295 Units/L (12-78); ALBUMIN 2.7 g/dL (3.4-5.0); ALKALINE PHOSPHATASE 136 Units/L (46-116); ASPARTATE AMINO TRANSFERASE 298 Units/L (15-37); BLOOD UREA NITROGEN 13 mg/dL (7-18); CALCIUM 7.8 mg/dL (8.5-10.1); COR CA(FOR HYPOALB) 8.8 mg/dL (8.5-10.1); COR NA(FOR HYPERGLY) 147 mmol/L (136-145); CREATININE 0.93 mg/dL (0.55-1.02); GLUCOSE 147 mg/dL (65-99); SODIUM 146 mmol/L (136-145); TOTAL PROTEIN 5.9 g/dL (6.4-8.2); eGFR BLACK RACES > 60 (>60); eGFR NON BLACK RACES > 60 (>60)
[2017-01-24 06:54] LABS: CHLORIDE 115 mmol/L (98-107)
[2017-01-24] MEDS: ALBUMIN HUMAN 25%- 100ML 100 ML IV SCH (08:47)
[2017-01-24] MEDS: LEVAQUIN PREMIX IV 750 MG 750 MG/150 ML BAG IV SCH (08:48)
[2017-01-24] MEDS: FLONASE NASAL SPRAY ENOSTRIL SCH (10:16)
[2017-01-24] MEDS: NEURONTIN TAB 600 MG PO SCH (21:02)
[2017-01-24] MEDS: AMBIEN PO PRN (21:03)
[2017-01-25] MEDS: FORTAZ or TAZICEF INJ 2 GM in NS 50 ML IV + SPIKE MINIBAG* 50 ML IV SCH (05:00)
[2017-01-25] MEDS: NS 1000 ML 1,000 ML IV SCH (05:32)
[2017-01-25 05:37] LABS: BASOPHILS % (AUTO) 0.5 % (0.2-1.0); HEMATOCRIT 32.9 % (36.0-47.0); HEMOGLOBIN 11.1 g/dL (12.0-16.0); LYMPHOCYTES # (AUTO) 1.2 X10^3/uL (1.3-2.9); LYMPHOCYTES % (AUTO) 16.3 % (21.0-51.0); MEAN CORPUSCULAR HEMOGLOBIN 31.6 pg (27.0-34.0); MEAN CORPUSCULAR HGB CONC 33.6 g/dL (33.0-35.0); MEAN PLATELET VOLUME 10.8 fL (7.4-11.0); MONOCYTES # (AUTO) 0.4 x10^3/uL (0.3-0.8); MONOCYTES % (AUTO) 4.9 % (0.0-13.0); NEUTROPHILS # (AUTO) 5.9 x10^3/uL (2.2-4.8); NEUTROPHILS % (AUTO) 78.3 % (42.0-75.0); PLATELET COUNT 187 X10^3/uL (150.0-450.0); RED CELL DISTRIBUTION WIDTH 13.8 % (11.6-16.5); WHITE BLOOD COUNT 7.6 X10^3/uL (3.6-10.0)
[2017-01-25] MEDS: VALIUM INJ IM PRN (05:41)
[2017-01-25 05:48] LABS: ALANINE AMINOTRANSFERASE 235 Units/L (12-78); ALBUMIN 2.7 g/dL (3.4-5.0); ALKALINE PHOSPHATASE 117 Units/L (46-116); ASPARTATE AMINO TRANSFERASE 74 Units/L (15-37); BLOOD UREA NITROGEN 16 mg/dL (7-18); CARBON DIOXIDE 20.1 mmol/L (21-32); CHLORIDE 113 mmol/L (98-107); COR NA(FOR HYPERGLY) 147 mmol/L (136-145); CREATININE 0.91 mg/dL (0.55-1.02); GLUCOSE 138 mg/dL (65-99); SODIUM 146 mmol/L (136-145); TOTAL PROTEIN 5.7 g/dL (6.4-8.2); eGFR BLACK RACES > 60 (>60); eGFR NON BLACK RACES > 60 (>60)
[2017-01-25 06:46] LABS: BAND NEUTROPHILS % 7 % (0-10); METAMYELOCYTES % 1; PLATELET MORPHOLOGY COMMENT NORMAL (NORMAL)
[2017-01-25 08:45] VITALS: BP 121/78
[2017-01-25] MEDS: FLONASE NASAL SPRAY ENOSTRIL SCH (09:01)
[2017-01-25] MEDS: LEVAQUIN PREMIX IV 750 MG 750 MG/150 ML BAG IV SCH (09:01)
[2017-01-25] MEDS: ALBUMIN HUMAN 25%- 100ML 100 ML IV SCH (09:01)
[2017-01-26 06:47] LABS: STONE WEIGHT 39 mg
== END 2017-01-25 11:35 | disposition home or self-care (01) | DRG 693 ==
LOC: ER 09:35 → MED/SURG 13:45 → OBSVTOIN 01-23 08:00
PROVIDERS: ADMIT Internal Medicine; ATTEND Internal Medicine
DX: N20.0 Calculus of kidney (principal); A41.59 Other Gram-negative sepsis; R10.84 Generalized abdominal pain; R10.31 Right lower quadrant pain; R50.81 Fever presenting with conditions classified elsewhere; Z87.442 Personal history of urinary calculi; E86.0 Dehydration; G43.809 Other migraine, not intractable, without status migrainosus; E88.09 Other disorders of plasma-protein metabolism, not elsewhere classified; B96.89 Other specified bacterial agents as the cause of diseases classified elsewhere
CPT/HCPCS: 36415; 74176; 80053; 81001; 82270; 82365; 83605; 85025; 87040; 87045; 87077; 87086; 87088; 87186; 87205; 87328; 87329; 87336; 87427; 87493; 87899; 96365; 96374; 96375; 99283; 99284; A4216; A4222; P9047; G0378; J0713; J1100; J1170; J1885; J1956; J2060; J2405; J2550; J3360

== ENCOUNTER → 2017-12-15 | Outpatient (CLI) | payer OTHER ==
--- NOTE | 2017-12-17 16:08 | MG ---
HISTORY: SCREENING Comparison: Multiple priors dating back to March 26, 2010 FINDINGS: Bilateral CC and MLO projections of the right and left breast were obtained. Heterogeneously dense f ibroglandular tissue is seen to be present without suspicious interval change. No significant andrea ectural distortion, mass or clustered microcalcifications can be observed to suggest malignancy. No skin thickening or nipple retraction is appreciated. No pathological lymphadenopathy can be identif ied. IMPRESSION: NO RADIOGRAPHIC EVIDENCE OF MALIGNANCY. ACR CATEGORY I - NEGATIVE EXAM. FOLLOW-UP EXAM 1 YEAR. Diagnostic CAD was utilized and reviewed. * 0 (ZERO) - ASSESSMENT INCOMPLETE; ADDITIONAL IMAGING IS NEEDED. * / (ONE) - NEGATIVE. * 2/II (TWO) - BENIGN FINDINGS. * 3/III (THREE) - PROBABLY BENIGN FINDING; SHORT INTERVAL FOLLOW-UP SUGGESTED. * 4/IV (FOUR) - SUSPICIOUS ABNORMALITY; BIOPSY SHOULD BE CONSIDERED. * 5/V - HIGHLY SUSPICIOUS OF MALIGNANCY; BIOPSY SHOULD BE PERFORMED. A NEGATIVE X-RAY REPORT SHOULD NOT DELAY BIOPSY IF A DOMINANT OR CLINICALLY SUSPICIOUS MASS IS PRESENT; 4 TO 8 PERCENT OF CANCERS ARE NOT IDENTIFIED BY X-RAY. A NEGA TIVE REPORT MAY REINFORCE THE CLINICAL IMPRESSION. ADENOSIS AND DENSE BREASTS MAY OBSCURE AN UNDERLY ING NEOPLASM. Reported By:
== END ==
LOC: RAD 11:15
PROVIDERS: ATTEND Internal Medicine
DX: Z12.31 Encounter for screening mammogram for malignant neoplasm of breast (principal)
CPT/HCPCS: 77067